=== PATIENT | female | born 1980 | race African-American/Black ===

== ENCOUNTER 2018-05-21 09:59 | Emergency (ER) | payer OTHER ==
[~2018-05-21] VITALS: Ht 162.6 cm; Wt 82.8 kg
[2018-05-21 10:12] VITALS: BP 118/57
== END 2018-05-21 10:27 | disposition home or self-care (01) ==
LOC: M.ERS 09:59
DX: S40.861A Insect bite (nonvenomous) of right upper arm, initial encounter (principal); Z88.2 Allergy status to sulfonamides; W57.XXXA Bitten or stung by nonvenomous insect and other nonvenomous arthropods, initial encounter; Y93.89 Activity, other specified; Y92.89 Other specified places as the place of occurrence of the external cause; Y99.8 Other external cause status

== ENCOUNTER 2019-03-21 12:14 | Emergency (ER) | payer OTHER ==
[~2019-03-21] VITALS: Ht 165.1 cm; Wt 89.8 kg
[2019-03-21 12:44] LABS: HEMATOCRIT 36.5 % (37.0-47.0); HEMOGLOBIN 12.2 gm/dL (12.0-15.0); MCHC 33.5 g/dL (28.0-37.0); MCV 89.5 fL (80.0-100.0); MPV 8.4 fl. (7.2-11.1); NUCLEATED RBCS 0 /100WBC; PLATELET COUNT* 265 thou/uL (150-400); RBC 4.08 mil/uL (4.20-5.00); RDW-CV 15.1 % (10.5-14.5); WBC 6.2 thou/uL (4.0-11.0)
[2019-03-21 12:54] LABS: ANION GAP 8 mmol/L (7-16); BUN 6 mg/dL (7-18); CHLORIDE 104 mmol/L (98-107); CO2 27 mmol/L (21-32); CREATININE 0.9 mg/dL (0.6-1.3); GLUCOSE 92 mg/dL (70-99); POTASSIUM 3.6 mmol/L (3.5-5.1); SODIUM 139 mmol/L (136-145)
[2019-03-21 12:55] LABS: APTT 28.7 Seconds (25.0-31.3); PROTIME 10.7 Seconds (9.20-11.50)
[2019-03-21 13:03] LABS: ABSOLUTE EOSINOPHILS 1.1 thou/uL (0.0-0.7); ABSOLUTE LYMPHOCYTES 1.8 thou/uL (0.8-5.3); ABSOLUTE MONOCYTES 0.3 thou/uL (0.0-1.2); ATYPICAL LYMPHS 5 %
[2019-03-21 13:04] LABS: PLATELET ESTIMATE ADEQUATE
[2019-03-21 13:05] LABS: ALBUMIN 3.3 g/dL (3.4-5.0); ALKALINE PHOSPHATASE 54 U/L (46-116); LIPASE 54 U/L (73-393); SGOT 16 U/L (15-37); SGPT 18 U/L (30-65); TOTAL BILIRUBIN 0.4 mg/dL (<0.1-1.0); TROPONIN-I LEVEL <0.06 ng/mL (<0.06)
[2019-03-21 14:28] VITALS: BP 126/66
--- NOTE | 2019-03-21 16:49 | EKG ---
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[facility] : 1980 Requested By: Vasquez Kumari Order Number: [id number] MD: Rsa Adame Measurements Intervals [place] Rate: 72 P: 68 PA: 136 QRS: -23 QRSD: 87 T: 19 QT: 386 QTc: 423 Interpretive Statements Sinus rhythm Borderline left axis deviation Abnormal R-wave progression, early transition No previous ECG available for comparison Electronically Signed On 03-21-2019 16:49:08 CDT by Ras Adame [email or web address] <ELECTRONICALLY SIGNED> By: Ras Adame MD, [facility] 03/21/19 1649 1221 1221 Ras Adame MD, FACC /EPI
== END 2019-03-21 14:31 | disposition home or self-care (01) ==
LOC: M.ERS 12:14
PROVIDERS: Physician Assistant
DX: R07.89 Other chest pain (principal); J45.909 Unspecified asthma, uncomplicated; Z88.2 Allergy status to sulfonamides

== ENCOUNTER 2020-05-23 21:10 | Emergency (ER) | payer OTHER ==
[~2020-05-23] VITALS: Ht 162.6 cm; Wt 88.5 kg
[2020-05-23] MEDS ORDERED: PLAQUENIL200 MG PO (21:19)
[2020-05-23] MEDS ORDERED: FLEXERIL PO (21:19)
[2020-05-23] MEDS ORDERED: PROAIR HFA8.5 GM INH (21:20)
[2020-05-23 21:50] VITALS: BP 119/82
== END 2020-05-23 22:03 | disposition home or self-care (01) ==
LOC: M.ERS 21:10
DX: Z20.2 Contact with and (suspected) exposure to infections with a predominantly sexual mode of transmission (principal); J45.909 Unspecified asthma, uncomplicated; Z88.2 Allergy status to sulfonamides

== ENCOUNTER 2021-07-23 20:20 | Emergency (ER) | payer BC ==
[~2021-07-23] VITALS: Ht 162.6 cm; Wt 87.1 kg
[~2021-07-23 20:20] MED LIST: FLEXERIL PO; PLAQUENIL200 MG PO; PROAIR HFA8.5 GM INH
[2021-07-23 21:04] LABS: HEMATOCRIT 36.8 % (37.0-47.0); HEMOGLOBIN 12.3 gm/dL (12.0-15.0); MCH 30.4 pg (26.0-34.0); MCHC 33.5 g/dL (28.0-37.0); MCV 90.7 fL (80.0-100.0); MPV 7.8 fl. (7.2-11.1); NUCLEATED RBCS 0 /100WBC; PLATELET COUNT* 286 thou/uL (150-400); RBC 4.05 mil/uL (4.20-5.00); RDW-CV 14.8 % (10.5-14.5); WBC 7.2 thou/uL (4.0-11.0)
[2021-07-23 21:20] LABS: CALCIUM 9.3 mg/dL (8.5-10.1); CREATININE 1.1 mg/dL (0.6-1.3); POTASSIUM 4.3 mmol/L (3.5-5.1)
[2021-07-23 21:24] LABS: ALBUMIN 3.5 g/dL (3.4-5.0); TOTAL BILIRUBIN 0.4 mg/dL (<0.1-1.0); TOTAL PROTEIN 7.5 g/dL (6.4-8.2)
[2021-07-23 21:49] LABS: ABSOLUTE EOSINOPHILS 0.6 thou/uL (0.0-0.7); ABSOLUTE LYMPHOCYTES 3.2 thou/uL (0.8-5.3); ABSOLUTE MONOCYTES 0.5 thou/uL (0.0-1.2); ABSOLUTE NEUTROPHILS 2.8 thou/uL (1.6-8.1)
[2021-07-23 21:50] LABS: PLATELET ESTIMATE ADEQUATE
[2021-07-23] MEDS ORDERED: METROGEL-VAGINA70 GM VAG (22:42)
[2021-07-23 23:00] VITALS: BP 124/80
== END 2021-07-23 23:00 | disposition home or self-care (01) ==
LOC: M.ERS 20:20
PROVIDERS: Physician Assistant
DX: A59.9 Trichomoniasis, unspecified (principal); J45.909 Unspecified asthma, uncomplicated; Z79.899 Other long term (current) drug therapy; Z88.2 Allergy status to sulfonamides

== ENCOUNTER → 2021-09-03 | Emergency (ER) | payer BC ==
[~2021-09-03] MED LIST changes: +METROGEL-VAGINA70 GM VAG
== END ==
LOC: M.ERS 07:26
DX: R09.89 Other specified symptoms and signs involving the circulatory and respiratory systems (principal); Z53.21 Procedure and treatment not carried out due to patient leaving prior to being seen by health care provider